=== PATIENT | female | born 1945 | race African-American/Black ===

== ENCOUNTER → 2017-06-12 | Outpatient (CLI) | payer MEDICARE ==
[2016-12-27 10:59] VITALS: BP 152/90
[~2017-06-12] MED LIST: AMLO10TA2 PO; ASPI-482 PO; BENZ100C PO; CALC600T4 PO; CETI10TA22 PO; HYDR12.58 PO; INSU100I17 SQ; LEVO500T59 PO; LEVO88TA4 PO; LISI40TA PO; METF850T2 PO; MOME13HF IH; MONT10TA9 PO; MULT-460 PO; NPH,100I3 SQ; ONDA4TAB10 SL; PANT40TA3 PO; POTA20TA4 PO; PRED-220 PO; PROAIR RESPICL90 MCG IH; SIMV10TA3 PO; TRAZ50TA15 PO
--- NOTE | 2017-06-12 12:38 | KCIC ---
Bilateral digital screening mammograms: Reason for examination: Routine screening. Comparison is made to previous studies dated 05/31/2016 and 05/24/2015. The skin and nipples show no abnormalities. No abnormal axillary lymph nodes are seen. The breast parenchyma shows scattered fibroglandular density. (Breast density: Category B.) There continues to be a small nodule consistent with an intramammary lymph node in the 9:00 B position of the right breast. There are no new dominant masses, suspicious calcifications or architectural distortions. A few benign calcifications are present. Impression: No evidence of malignancy. Recommend routine screening. BI-RADS category 2: Benign "Our facility is accredited by the [employer] Mammography [employer]." This patient's information has been entered into a reminder system for the patient to be notified with the results of her examination and a target date for the next mammogram. Electronically signed by: Addie Brumfield MD (06/12/2017 12:34 PM) [id number]
== END | disposition home or self-care (01) ==
LOC: KCIC MAMMO 07:51
PROVIDERS: ATTEND Internal Medicine
DX: Z12.31 Encounter for screening mammogram for malignant neoplasm of breast (principal)
CPT/HCPCS: G0202; 77067

== ENCOUNTER → 2018-06-19 | Outpatient (CLI) | payer MEDICARE | END | disposition home or self-care (01) | LOC: KCIC MAMMO 08:32 | DX: Z12.31 Encounter for screening mammogram for malignant neoplasm of breast (principal); I10 Essential (primary) hypertension; E11.65 Type 2 diabetes mellitus with hyperglycemia; E78.5 Hyperlipidemia, unspecified; J44.0 Chronic obstructive pulmonary disease with (acute) lower respiratory infection; E03.9 Hypothyroidism, unspecified; E87.6 Hypokalemia; M17.12 Unilateral primary osteoarthritis, left knee; K21.9 Gastro-esophageal reflux disease without esophagitis; Z87.891 Personal history of nicotine dependence; Z96.651 Presence of right artificial knee joint | CPT/HCPCS: 77063; 77067 ==

== ENCOUNTER → 2019-06-22 | Outpatient (CLI) | payer MEDICARE ==
[2016-12-27 10:59] VITALS: BP 152/90
[~2019-06-22] MED LIST changes: -AMLO10TA2 PO; +AMLO10TA8 PO; +LISI-130 PO; -LISI40TA PO; -METF850T2 PO; +METF850T8 PO; +MONT10TA49 PO; -MONT10TA9 PO; -PANT40TA3 PO; +PANT40TA77 PO; +TRAZ-118 PO; -TRAZ50TA15 PO
--- NOTE | 2019-06-22 13:28 | KCIC ---
Bilateral digital screening mammograms with 3-D tomosynthesis: Reason for examination: Routine screening. Comparison is made to previous studies dated back to 05/31/2016. Bilateral mammograms in CC and oblique projections were obtained with 2-D imaging and 3-D tomosynthesis imaging on a Siemens Inspiration unit and reviewed on the workstation. Interpretation was made with the benefit of CAD. The skin and nipples show no abnormalities. No abnormal axillary lymph nodes are seen. The breast parenchyma is heterogeneously dense. (Breast density: Category C.) There continue to be small nodular densities in the 9:00 B and 10:00 C positions of the right breast which are stable. There are no new dominant masses, suspicious calcifications or architectural distortion. Benign calcifications are present. Impression: No evidence of malignancy. Recommend routine screening. Your patient's mammogram demonstrates that she has dense breast tissue (breast density category C or D), which could hide abnormalities, and if she has other risk factors for breast cancer that have been identified, she might benefit from supplemental screening tests that may be suggested by you as her ordering physician. Dense breast tissue, in and of itself, is a relatively common condition. Therefore, this information is not provided to cause undue concern, but rather to raise your awareness and to promote discussion with your patient regarding the presence of other risk factors, in addition to dense breast tissue. Your patient's mammography results will be sent to her. BI-RAD Category 2: Benign. "Our facility is accredited by the [employer] Mammography Program." This patient's information has been entered into a reminder system for the patient to be notified with the results of her examination and a target date for the next mammogram. Electronically signed by: Addie Brumfield MD (06/22/2019 1:26 PM) [facility]
== END | disposition home or self-care (01) ==
LOC: KCIC MAMMO 11:12
PROVIDERS: ATTEND Internal Medicine
DX: Z12.31 Encounter for screening mammogram for malignant neoplasm of breast (principal); N64.89 Other specified disorders of breast
CPT/HCPCS: 77063; 77067

== ENCOUNTER → 2019-11-30 | Outpatient (CLI) | payer MEDICARE ==
[2016-12-27 10:59] VITALS: BP 152/90
[~2019-11-30] MED LIST changes: -CETI10TA22 PO; +CETI10TA24 PO; +SIMV10TA15 PO; -SIMV10TA3 PO
--- NOTE | 2019-11-30 12:10 | KCIC ---
EXAM: Dual energy x-ray absorptiometry (DEXA). HISTORY: Postmenopausal female presents for osteoporosis screening. COMPARISON: 05/24/2015. TECHNIQUE: Dual energy x-ray absorptiometry of the lumbar spine and left was performed. Calculation of bone mineral density based on standard deviations above or below the expected young adult normal value (T-score) was completed. FINDINGS: The average bone mineral density in the 1st through 4th lumbar vertebrae is 0.985 g/cmxcm, corresponding with a T-score of -0.6. There has been a 1.7% decrease in density of the lumbar spine compared to the prior study. The average total bone mineral density in the left hip is 0.993 g/cmxcm, corresponding with a T-score of 0.4. There has been a 1.9% increase in density of the left hip compared to the prior study. IMPRESSION: Normal bone mineral density. Note: Definitions established by the World Health Organization: 1. Normal: T-score is -1.0 or above. 2. Osteopenia: T-score is between -1.0 and -2.5 . 3. Osteoporosis: T-score is -2.5 or below. Electronically signed by: Mikayla Cho MD (11/30/2019 12:07 PM) [facility]
== END | disposition home or self-care (01) ==
LOC: KCIC DEXA 09:45
PROVIDERS: ATTEND Internal Medicine
DX: Z13.820 Encounter for screening for osteoporosis (principal); Z78.0 Asymptomatic menopausal state
CPT/HCPCS: 77080

== ENCOUNTER → 2020-06-23 | Outpatient (CLI) | payer MEDICARE ==
[2016-12-27 10:59] VITALS: BP 152/90
[~2020-06-23] MED LIST changes: -CALC600T4 PO; +CALC600T6 PO
--- NOTE | 2020-06-23 11:07 | KCIC ---
EXAM: Bilateral digital screening mammogram with tomosynthesis. HISTORY: 75-year-old female presents for screening mammography. TECHNIQUE: Full-field digital craniocaudal and mediolateral oblique 2D and 3D tomosynthesis images of both breasts are obtained for evaluation. Computer aided detection with [employer]board[employer] software version 9.3 was applied. COMPARISON: 06/22/2019 and 06/19/2018 BREAST PARENCHYMAL DENSITY: Level A - Mostly fat. FINDINGS: There is no new suspicious mass, microcalcification or region of architectural distortion. There are stable tiny circumscribed nodular densities within both breasts. The multiplicity and stability favors benignity. There are few benign calcifications. IMPRESSION: BI-RADS Category 2: Benign finding(s). RECOMMENDATION: Annual mammography is recommended. If your mammogram demonstrates that you have dense breast tissue, which could hide abnormalities, and if you have other risk factors for breast cancer that have been identified, you might benefit from supplemental screening tests that may be suggested by your ordering physician. Dense breast tissue, in and of itself, is a relatively common condition. This information is not provided to cause undue concern, but rather to raise your awareness and to promote discussion with your physician regarding the presence of other risk factors, in addition to dense breast tissue. A report of your mammography results will be sent to you and your physician. You should contact your physician if you have any questions or concerns regarding this report. Mammography is a sensitive method for finding small breast cancers, but it does not detect them all and is not a substitute for careful clinical examination. A negative mammogram does not negate a clinically suspicious finding and should not result in delay in biopsying a clinically suspicious abnormality. PQRS compliance statement - Patient information was entered into a reminder system with a target due date for the next mammogram. "Our facility is accredited by the [employer] Mammography Program." Electronically signed by: Mikayla Cho MD (06/23/2020 11:04 AM) [id number]
== END | disposition home or self-care (01) ==
LOC: KCIC MAMMO 09:48
PROVIDERS: ATTEND Internal Medicine
DX: Z12.31 Encounter for screening mammogram for malignant neoplasm of breast (principal); N64.89 Other specified disorders of breast
CPT/HCPCS: 77063; 77067

== ENCOUNTER → 2021-12-03 | Outpatient (CLI) | payer MEDICARE ==
[2016-12-27 10:59] VITALS: BP 152/90
[~2021-12-03] MED LIST changes: +AMLO-187 PO; -AMLO10TA8 PO; -CALC600T6 PO; +CALC600T60 PO; -CETI10TA24 PO; +CETI10TA74 PO; +POTA-121 PO; -POTA20TA4 PO
--- NOTE | 2021-12-03 10:00 | KCIC ---
EXAM: DUAL ENERGY X-RAY ABSORPTIOMETRY (DEXA). HISTORY: Postmenopausal screening. FINDINGS: The lowest measured T-score is 0.1 in the lumbar spine, based on a bone mineral density of 1.060 g/cm^2. Refer to the worksheets for full detail. There has been a 7.6 percent increase in density of the lumbar spine and 3.3 percent decrease in dens ity of the left hip compared to a study performed 11/30/2019. IMPRESSION: 1. Normal. Bone mineral density yields a T-score of -1.0 or greater. Fracture risk is low. 2. FRAX report: Not calculated. METHODOLOGY: Dual energy x-ray absorptiometry was performed to measure bone mineral density. The foll owing analysis is based on the 2019 Official Positions of the International Society for Clinical Dens itometry: Measurements of the hips and the average of L1-L4 are preferred. When the spine and/or hip cannot be feasibly measured or interpreted, or in the setting of hyperparathyroidism, distal radial bone minera l density may be measured. The lumbar spine T-score is based on the average bone mineral density of L1-L4. In the setting of art ifact or anatomic abnormality, some lumbar levels may be excluded, and the remaining levels used for calculation. A single lumbar level is not used for diagnosis, and if only a single level is available for assessment, another anatomic site will be used to assign a diagnosis. The hip T-score is based on the bone mineral density measurement of the femoral neck or total proxima l femur of either side, whichever is lowest. Bilateral mean values are not used for diagnosis. The forearm T-score is derived from 33% of the distal radius of the nondominant forearm. Electronically signed by: Mikayla Cho MD (12/03/2021 9:57 AM) [id number]
--- NOTE | 2021-12-03 13:09 | KCIC ---
Bilateral digital screening mammograms with 3-D tomosynthesis: Reason for examination: Routine screening. Comparison is made to previous studies dated back to 05/31/2016. Bilateral mammograms in CC and oblique projections were obtained with 2-D imaging and 3-D tomosynthes is imaging on a Siemens Inspiration unit and reviewed on the workstation. Interpretation was made wit h the benefit of CAD. The skin and nipples show no abnormalities. No abnormal axillary lymph nodes are seen. The breast par enchyma is predominantly fatty. (Breast density: Category A.) There continues to be a small nodule at the 9:30 B position of the right breast which is stable. There are no new dominant masses, suspiciou s calcifications or architectural distortion. Benign calcifications are present. Impression: No evidence of malignancy. Recommend routine screening. BI-RAD Category 2: Benign. "Our facility is accredited by the [employer] Mammography Program." This patient's information has been entered into a reminder system for the patient to be notified wit h the results of her examination and a target date for the next mammogram. Electronically signed by: Addie Brumfield MD (12/03/2021 1:07 PM) [email or web address]
== END ==
LOC: KCIC MAMMO 09:02
PROVIDERS: ATTEND Internal Medicine
DX: Z12.31 Encounter for screening mammogram for malignant neoplasm of breast (principal); Z13.820 Encounter for screening for osteoporosis; E28.39 Other primary ovarian failure
CPT/HCPCS: 77063; 77067; 77080

== ENCOUNTER → 2022-01-24 | Outpatient (CLI) | payer MEDICARE ==
[2016-12-27 10:59] VITALS: BP 152/90
--- NOTE | 2022-01-24 16:29 | KCIC ---
Exam: Bilateral XR HAND 3 VIEWS History: Rheumatoid arthritis Comparison: None. Findings: There is periarticular osteopenia. There are mild degenerative changes throughout the interphalangeal joints without significant erosive change. No abnormal soft tissue swelling. Small marginal osteophy cherri in the metacarpophalangeal joints. Mild narrowing at the bilateral triscaphe joint. No fracture o r dislocation. Impression: 1. Periarticular osteopenia which can be seen in rheumatoid arthritis. Otherwise degenerative change s of the hands and wrists resemble findings which can be seen in osteoarthritis. Electronically signed by: Seth Farley MD (01/24/2022 4:27 PM) [id number]
== END ==
LOC: KCIC 10:00
PROVIDERS: ATTEND Internal Medicine
DX: M05.79 Rheumatoid arthritis with rheumatoid factor of multiple sites without organ or systems involvement (principal); M25.741 Osteophyte, right hand; M25.742 Osteophyte, left hand
CPT/HCPCS: 73130-50

== ENCOUNTER 2022-04-19 07:47 | Day surgery (SDC) | payer MEDICARE ==
[~2022-04-19] VITALS: Ht 160 cm; Wt 74.4 kg
[~2022-04-19 07:47] MED LIST changes: +HYDROmorphone 2 MG/ML INJ. IVP PRN; +IV RINGERS,LACTATED 1000ML 1,000 ML IV SCH; +MORPHINE SULFATE 2 MG/ML INJ. IVP PRN; +PROCHLORPERAZINE 10 MG/2 ML VIAL. IVP PRN; +VANCOMYCIN 1 GM in IV DEXTROSE 5% 250 ML IV PRN; +fentaNYL PF VIAL 100 MCG/2 ML VIAL IVP PRN
[2022-04-19] MEDS ORDERED: HYDROmorphone 2 MG/ML INJ. ONE (09:05)
[2022-04-19] MEDS ORDERED: ONDA4TAB12 PO (09:14)
[2022-04-19] MEDS ORDERED: DOCU-109 PO (09:14)
[2022-04-19] MEDS ORDERED: HYDR-2761 PO (09:14)
--- NOTE | 2022-04-19 09:16 | DISCH ---
DISCHARGE INSTRUCTIONS Condition on Discharge Condition on Discharge: Stable Activity After Discharge Activity Instructions for Disc: Activity as tolerated, Avoid exertion Bathing Instructions: Shower-keep dressing dry, No Tub Bath until see Lifting Instructions after Dis: No heavy lifting, No pulling or pushing Exercise Instruction after Dis: Walk 10 min, 3 x per day Driving Instructions after Dis: Do not drive (while taking narcotic pain meds) Weight Bearing Status after Di: Non weight bearing (LUE) Diet after Discharge Diet after Discharge: Cardiac, Diabetic No Calorie Level Wound Incision Care Wound/Incision Care: Ice to area for comfort, Keep wound/cast CDI, Keep wound elevated, Do not change dressing Contacting the after DC Call your doctor for: If your condition worsens Follow-Up Follow up with: Follow up with ortho clinic in 1 week. [phone] NIRAJ NEVES April 19, 2022 09:16
[2022-04-19] MEDS ORDERED: BUPIVACAINE MPF 0.25% 30 ML VIAL. ONE (09:21)
[2022-04-19] MEDS ORDERED: PROPOFOL 10 MG/ML (20ML) VIAL. IV ONE (09:25)
[2022-04-19] MEDS ORDERED: LIDOCAINE 2% PF 5 ML VIAL. ONE (09:26)
[2022-04-19] MEDS ORDERED: DEXAMETHASONE SOD PHOS 4 MG/ML VIAL ONE (09:26)
[2022-04-19] MEDS ORDERED: FAMOTIDINE 20 MG/2 ML VIAL ONE (09:26)
[2022-04-19] MEDS ORDERED: ONDANSETRON PF 4 MG/2 ML VIAL. ONE (09:26)
[2022-04-19] MEDS ORDERED: CLINDAMYCIN 900MG PREMIX 50 ML IV ONE (09:40)
[2022-04-19] MEDS ORDERED: SEVOFLURANE 31 TO 60 MINUTES. IH ONE (10:44)
--- NOTE | 2022-04-19 10:47 | PDOC4 ---
OPERATIVE NOTE Date: Date: April 19, 2022 Pre-Op Diagnosis: Left carpal tunnel syndrome Left cubital tunnel syndrome Trigger finger left thumb left middle finger left ring finger left small finger Post-Op Diagnosis: Same Procedure Performed: Left carpal tunnel release Left ulnar nerve transposition Trigger finger release A1 yordan left thumb left middle finger left ring finger left small finger Surgeon: Alesha Anesthesia Type: General Blood Loss: 10 cc Specimans Obtained: None Findings: See dictation Complications: None Operative Note: Patient taken to operative suite given a general acetic left upper extremities and prepped and draped in a sterile fashion incision was made through skin subcutaneous tissues directly over the area of the transverse carpal ligament was in line with the radial border the fourth digit this was carefully taken through soft tissue down to identify the actual transverse carpal ligament which was resected and longitudinally. This was noted to be completely released the nerve underlying was noted to be completely intact and fully released. Attention was then directed to the thumb where a L-type of incision was made directly over the area of the A1 yordan identifying very quickly the digital nerve which was retracted on both sides of the incision and the A1 yordan was subsequently released. Tendons underlying were noted to be intact and stable. At the same incision was made over the area of the A1 yordan of the left middle the left ring and the left small fingers dissection was taken down on each of those fingers down to the A1 yordan and those were released first the middle finger ring finger and then the small finger. All tendons were noted to be completely intact and stable other than the flexor tendon to the small finger had approximately a 10% injury but this was not a repairable type of situation this was just frayed. All these wounds were then thoroughly irrigated and then interrupted sutures to close the incision sites over these areas. After this was completely reapproximated in the areas of the carpal tunnel and the trigger fingers the attention was then directed to the ulnar nerve where an incision was made through skin and subcutaneous tissues along the area of the path of the ulnar nerve just posterior to the medial epicondyle this was carefully taken down towards the medial epicondyle superficial bleeding is coagulated using a Bovie knife. Local was placed within the areas of the incision and skin was reapproximated and then a posterior splint was placed. Tourniquet was deflated with good return of pulses and capillary refill patient was then taken from the operative bed to the postoperative bed taken to the PACU in stable ANNA GIBSON Jr. DO April 19, 2022 10:47
[2022-04-19] MEDS ORDERED: HYDROcodone/APAP 5/325MG 1 TAB TABLET PO ONE (11:45)
[2022-04-19 12:00] VITALS: BP 147/72
== END 2022-04-19 12:41 | disposition home or self-care (01) ==
LOC: SURG 07:47
PROVIDERS: ATTEND Orthopaedic Surgery
DX: G56.02 Carpal tunnel syndrome, left upper limb (principal); G56.22 Lesion of ulnar nerve, left upper limb; M65.312 Trigger thumb, left thumb; M65.332 Trigger finger, left middle finger; M65.342 Trigger finger, left ring finger; M65.352 Trigger finger, left little finger; I10 Essential (primary) hypertension; E78.00 Pure hypercholesterolemia, unspecified; E11.9 Type 2 diabetes mellitus without complications; E03.9 Hypothyroidism, unspecified; J45.909 Unspecified asthma, uncomplicated; K21.9 Gastro-esophageal reflux disease without esophagitis; M19.90 Unspecified osteoarthritis, unspecified site; Z90.710 Acquired absence of both cervix and uterus; Z98.890 Other specified postprocedural states; Z79.899 Other long term (current) drug therapy
CPT/HCPCS: 26055; 64718; 64721; 82962; A4209; A4930; A6402; J1100; J1170; J2405; J2704; J3490; A4223; A4657; A6452